=== PATIENT | male | born 1985 | race Caucasian/White ===

== ENCOUNTER 2021-04-23 21:43 | Emergency (ER) | payer BC ==
[2021-04-23] MEDS ORDERED: Lidocaine/EPINEPHrine/Tetracaine Soln 1 ML TOP STA (22:19)
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
[2021-04-23] MEDS ORDERED: Lidocaine 1% with EPINEPHrine 1:100,000 20 ML MDV INJECT ONE (23:58)
[2021-04-23] MEDS ORDERED: Bupivacaine 0.5% 10 ML SDV INJECT ONE (23:58)
[2021-04-24] MEDS ORDERED: Lidocaine 1% with EPINEPHrine 1:100,000 10 ML MDV ONE (00:01)
== END 2021-04-24 00:45 | disposition home or self-care (01) ==
LOC: JD.ED 21:43
DX: S01.81XA Laceration without foreign body of other part of head, initial encounter (principal); J45.909 Unspecified asthma, uncomplicated; Z72.0 Tobacco use; W22.8XXA Striking against or struck by other objects, initial encounter
CPT/HCPCS: 12013; 99282; J3490